=== PATIENT | male | born 2000 | race Caucasian/White ===

== ENCOUNTER 2023-02-07 09:17 | Outpatient (CLI) | payer BC ==
[2023-02-07 10:53] LABS: #Eosinphils 0.4 10x3/uL (0.0-0.5); #Monocytes 0.5 10x3/uL (0.0-1.1); #Neutrophils 4.2 10x3/uL (1.5-8.4); %Basophils 0.6 % (0.0-2.0); %Eosinophils 5.9 % (0.0-6.0); %Lymphocytes 21.5 % (18.0-47.0); %Monocytes 7.9 % (0.0-10.0); %Neutrophils 63.8 % (40.0-75.0); Hematocrit 49.9 % (38.8-50.0); Hemoglobin 16.5 g/dL (13.5-17.5); Mean Corpuscular HGB CONC 33.1 g/dL (32.0-36.0); Mean Corpuscular Hemoglobin 28.9 pg (27.0-33.0); Mean Corpuscular Volume 87.4 fl (81.2-95.1); Mean Platelet Volume 9.7 fl (7.4-10.4); Platelet Count 315 10x3/uL (150-450); RBC Distribution Width 12.1 % (11.5-14.5); Red Blood Cell (RBC) Count 5.71 10x6/uL (4.32-5.72); White Blood Cell (WBC) Count 6.6 10x3/uL (3.5-10.5)
[2023-02-07 11:05] LABS: Anion Gap 14 mmol/L (10-20); BUN (Urea Nitrogen) 16 mg/dL (8.9-20.6); Calc. Creatinine Clearance 0 mL/min (70-130); Calcium 9.6 mg/dL (7.8-10.44); Carbon Dioxide 25 mmol/L (22-29); Chloride 105 mmol/L (98-107); Estimated GFR 118; Glucose 99 mg/dL (70-105); Potassium 4.2 mmol/L (3.5-5.1); Sodium 140 mmol/L (136-145)
== END 2023-02-07 09:18 | disposition home or self-care (01) ==
LOC: LABBT 09:17
PROVIDERS: ATTEND Specialist
DX: Z01.812 Encounter for preprocedural laboratory examination (principal); K40.90 Unilateral inguinal hernia, without obstruction or gangrene, not specified as recurrent
CPT/HCPCS: 80048; 85025

== ENCOUNTER 2023-02-09 07:31 | Day surgery (SDC) | payer BC ==
[2023-02-07 09:53] VITALS: BMI 29.7
[2023-02-09] MEDS ORDERED: Ketorolac Tromethamine 30 MG/ML VIAL ONE (08:25)
[2023-02-09] MEDS ORDERED: Acetaminophen 500 MG TAB ONE (08:25)
[2023-02-09] MEDS ORDERED: Midazolam HCl 2 mg/2 ml Vial ONE (09:56)
[2023-02-09] MEDS ORDERED: EPINEPHrine 1 MG/ML VIAL ONE (09:57)
[2023-02-09] MEDS ORDERED: Bupivacaine 0.25% HCL 30 ML VIAL ONE (09:57)
[2023-02-09] MEDS ORDERED: CEFAZOLIN 2 GM VIAL ONE (10:06)
[2023-02-09] MEDS ORDERED: Sodium Chloride 0.9% 100 ML ONE (10:06)
[2023-02-09] MEDS ORDERED: fentaNYL PF 100 MCG/2 ML SYRINGE ONE (10:15)
[2023-02-09] MEDS ORDERED: PROPOFOL 200 MG/20 ML VIAL ONE (10:16)
[2023-02-09] MEDS ORDERED: Ondansetron PF 4 MG/2 ML Vial ONE ×2 (10:16→13:28)
[2023-02-09] MEDS ORDERED: Rocuronium Bromide 10 MG/ML (10ML VIAL) ONE (10:16)
[2023-02-09] MEDS ORDERED: Lidocaine 1% PF 5 ML VIAL ONE (10:16)
[2023-02-09] MEDS ORDERED: SUGAMMADEX SODIUM 200 MG/2 ML VIAL ONE (11:40)
[2023-02-09] MEDS ORDERED: fentaNYL 50 mcg/mL 1 mL Vial ONE ×4 (12:18→12:54)
[2023-02-09] MEDS ORDERED: Morphine 2 MG/ML VIAL ONE (13:30)
[2023-02-09] MEDS ORDERED: HYDROcodone/Acetaminophen 5/325 mg Tablet ONE (14:20)
== END 2023-02-09 15:00 | disposition home or self-care (01) ==
LOC: SDC 07:31
PROVIDERS: ATTEND Specialist
PROC: 0YU54JZ Supplement Right Inguinal Region with Synthetic Substitute, Percutaneous Endoscopic Approach (ICD-10-PCS; principal; 2023-02-09)
DX: K40.90 Unilateral inguinal hernia, without obstruction or gangrene, not specified as recurrent (principal)
CPT/HCPCS: A4314; C1781; J0171; J1885; J2250; J2272; J2405; J2704; J3010; J3490; S0020